=== PATIENT | male | born 1985 | race Hispanic/Latino ===

== ENCOUNTER 2018-09-07 15:20 | Emergency (ER) | payer OTHER ==
[2018-09-07 15:39] LABS: BASOPHILS % (AUTO) 0.5 % (0.0-5.0); EOSINOPHILS % (AUTO) 2.2 % (0.0-8.0); HEMATOCRIT 44.4 % (42-54); MEAN CORPUSCULAR HEMOGLOBIN 30.8 pg (27.0-33.0); MEAN CORPUSCULAR VOLUME 88.1 fL (79-99); MONOCYTES % (AUTO) 8.1 % (3.0-13.0); NEUTROPHILS % (AUTO) 48.2 % (40.0-77.0); NUCLEATED RED BLOOD CELLS 0.1 % (0.0-0.19); PLATELET COUNT (AUTO) 208 K/uL (130-400); RED BLOOD CELL COUNT(AUTO) 5.04 MIL/uL (4.50-6.20); RED CELL DISTRIBUTION WIDTH 12.9 % (11.0-15.5); WHITE BLOOD COUNT (AUTO) 7.3 K/uL (4.8-10.8)
[2018-09-07 15:50] LABS: APPEARANCE,URINE Clear (CLEAR); BILIRUBIN,URINE Negative (NEGATIVE); COLOR,URINE Yellow (YELLOW); GLUCOSE, URINE (UA) Negative (NEGATIVE); KETONES,URINE Negative (NEGATIVE); LEUKOCYTE ESTERASE ,URINE Negative (NEGATIVE); NITRATE,URINE Negative (NEGATIVE); OCCULT BLOOD,URINE Negative (NEGATIVE); PROTEIN,URINE Negative (NEGATIVE); UROBILINOGEN,URINE 0.2 mg/dL (0.2-1.0)
[2018-09-07 15:51] LABS: CREATININE 1.5 mg/dL (0.5-1.5); POTASSIUM 3.7 mmol/L (3.5-5.1)
[2018-09-07 15:56] LABS: ALBUMIN 4.1 g/dL (3.5-5.0); BILIRUBIN,TOTAL 0.5 mg/dL (0.2-1.0); TOTAL PROTEIN, SERUM 7.8 g/dL (6.0-8.3)
[2018-09-07 15:58] LABS: AMPHET/METH SCREEN,URINE NEGATIVE (NEGATIVE); BARBITURATE SCREEN, URINE NEGATIVE (NEGATIVE); BENZODIAZEPINES SCREEN,URINE NEGATIVE (NEGATIVE); CANNABINOID SCREEN,URINE NEGATIVE (NEGATIVE); COCAINE SCREEN,URINE NEGATIVE (NEGATIVE); OPIATE SCREEN,URINE NEGATIVE (NEGATIVE); PHENCYCLIDINE SCREEN,URINE NEGATIVE (NEGATIVE)
[2018-09-07] MEDS ORDERED: ONDANSETRON HCL 4 MG/2 ML VIAL ONE (16:06)
== END 2018-09-07 17:22 | disposition home or self-care (01) ==
LOC: EDH 15:20
DX: T67.5XXA Heat exhaustion, unspecified, initial encounter (principal); X58.XXXA Exposure to other specified factors, initial encounter; Y93.89 Activity, other specified; Y92.89 Other specified places as the place of occurrence of the external cause; Y99.8 Other external cause status
CPT/HCPCS: 36415; 80053; 80305; 81003; 82550; 85025; 96360; 96374; 99284; J2405

== ENCOUNTER 2024-11-29 20:25 | Inpatient (IN) | payer SELFPAY ==
[~2024-11-29] VITALS: Ht 185.4 cm; Wt 135.6 kg
--- NOTE | 2024-11-29 21:00 | ERN ---
ED Note History of Present Illness Stated Complaint: C/O BLOOD IN STOOL X 4 DAYS W/DIZZINESS Chief Complaint: Bloody Stool Time Seen by MD: 20:44 Dictation: 39-year-old male with a past medical history of hypertension presented to the ER complaining of 1 week of blood in stool, reports that it is bright red color associated with dizziness. Stated dialysis sometime he has pain in his lower back associated with those episodes of bright red blood from rectum. Allergies: Coded Allergies: No Known Allergies (Unverified Allergy, Unknown, 11/29/24) Past Medical History Past Medical History: Hypertension Surgical History: None Review of System Dictation NEGATIVE EXCEPT PER HPI Constitutional: Negative for fever,chills, and weight loss Eyes: Negative for injury, pain,redness, and discharge ENT: Negative for injury,pain or swelling Cardiovascular: denies chest pain, palpitations, and edema Respiratory: Negative for shortness of breath, cough, and wheezing, Abdomen/GI: Reports bright red blood from rectum Back: Negative for injury and pain : Negative for injury, bleeding and discharge MS/Extremity: Negative for injury and deformity Skin: Negative for rash, and discoloration Neuro: Negative for headache, weakness, numbness, tingling, and seizure Psych: Negative for suicide ideation, homicidal ideation, and hallucinations Initial Vital Sign VS Vital Signs Date Time Temp Pulse Resp B/P (MAP) Pulse Ox O2 Delivery O2 Flow Rate FiO2 11/29/24 20:29 99.0 84 20 178/108 98 Room Air 11/29/24 21:11 0 21 Physical Exam Dictation General: awake, alert, NAD Head/Face: Normocephalic, atraumatic Eyes: PERRL, EOMI, vision at baseline ENT: oral cavity clear, TMs clear, no signs of infection Neck: Trachea midline, supple, no nuchal rigidity Cardiovascular: RRR, normal S1/S2, No MRGs, no JVD Respiratory: CTAB, no respiratory distress, No rales or wheezes Abdomen: Soft , no tender Skin: Warm, dry, normal turgor, no rash MS/Extremity: Pulses equal, no cyanosis, neurovascular intact, FROM Neuro: COAx4, GCS 15, strength 5/5, CN 2-12 intact, normal cerebellar exam, normal gait, Psych: Normal behavior, mood, and affect normal Results (Laboratory/Radiology) Laboratory/Radiology Laboratory Tests Test 11/29/24 21:05 White Blood Count 9.1 K/uL (4.8-10.8) Red Blood Count 4.74 MIL/uL (4.50-6.20) Hemoglobin 14.4 g/dL (14.0-18.0) Hematocrit 40.0 % (42-54) L Mean Corpuscular Volume 84.4 fL (79-99) Mean Corpuscular Hemoglobin 30.4 pg (27.0-33.0) Mean Corpuscular Hemoglobin Concent 36.0 g/dL (32.0-36.0) Red Cell Distribution Width 12.1 % (11.0-15.5) Platelet Count 210 K/uL (130-400) Mean Platelet Volume 10.4 fL (7.5-10.5) Immature Granulocyte % (Auto) 0.4 % (0-1) Neutrophils (%) (Auto) 51.1 % (40.0-77.0) Lymphocytes (%) (Auto) 37.5 % (21.0-51.0) Monocytes (%) (Auto) 8.1 % (3.0-13.0) Eosinophils (%) (Auto) 2.1 % (0.0-8.0) Basophils (%) (Auto) 0.8 % (0.0-5.0) Neutrophils # (Auto) 4.7 K/uL (1.8-7.7) Lymphocytes # (Auto) 3.4 K/uL (1.0-4.8) Monocytes # (Auto) 0.7 K/uL (0.1-1.0) Eosinophils # (Auto) 0.19 K/uL (0.00-0.70) Basophils # (Auto) 0.07 K/uL (0.00-0.20) Absolute Immature Granulocyte (auto 0.04 K/uL (0-1) Nucleated Red Blood Cells 0.0 % (0.0-0.19) Prothrombin Time 9.9 SEC (9.6-11.6) Prothromb Time International Ratio <= 0.93 (0.85-1.15) Activated Partial Thromboplast Time 25.6 SEC (26.3-35.5) L Stool Occult Blood POSITIVE (NEGATIVE) H Sodium Level 139 mmol/L (136-145) Potassium Level 3.9 mmol/L (3.5-5.1) Chloride Level 105 mmol/L (101-111) Carbon Dioxide Level 27 mmol/L (21-32) Blood Urea Nitrogen 19 mg/dL (7-18) H Creatinine 1.5 mg/dL (0.5-1.3) H Glomerular Filtration Rate Calc 60 mL/min (>90) Random Glucose 94 mg/dL (70-105) Total Calcium 9.1 mg/dL (8.5-10.1) ED Course ED Course Orders Procedure Category Date Status Time Cbc With Differential LAB 11/29/24 Complete 20:51 Occult Blood Stool LAB 11/29/24 Complete Single Only 20:51 Basic Metabolic Panel LAB 11/29/24 Complete 20:51 Pt And Ptt LAB 11/29/24 Complete 21:16 Pantoprazole 40mg Inj PHA 11/29/24 Complete (Protonix 40mg Inj 21:30 0.9%Nacl 1000ml (Ns PHA 11/29/24 In Process 1000ml) 22:00 Current Medications Medications (Trade) Dose Ordered Sig/Mini Route PRN Reason Start Time Stop Time Status Last Admin Dose Admin Pantoprazole Sodium (PROTonix 40MG INJ) 40 mg ONCE ONCE IVP 11/29/24 21:30 11/29/24 21:31 DC 11/29/24 21:25 Sodium Chloride 1,000 ml @ 125 mls/hr Q8H IV 11/29/24 22:00 12/29/24 21:59 Vital Signs Date Time Temp Pulse Resp B/P (MAP) Pulse Ox O2 Delivery O2 Flow Rate FiO2 11/29/24 21:11 99.0 86 18 168/98 98 Room Air* 0 21 11/29/24 20:29 99.0 84 20 178/108 98 Room Air Medical Decision Making MDM 39-year-old male reports by red blood from rectum x1 week associated with the dizziness. Possible concerning hemorrhoids Possible AV malformation. CBC Occult blood test ordered Patient passed to clots of blood here in the ER. Hemoglobin was stable 14.4 Patient will be admitted for further evaluation. Likely he will need a endoscopy versus colonoscopy for further evaluation. DX & DISP Disposition: Observation Decision to Admit Date: Nov 29, 2024 Departure Impression: Primary Impression: Stool bloody Additional Impressions: Internal hemorrhoid, GI bleed Condition: Stable Referrals: SELF,REFERRAL (PCP) Patient accepted by hospitalist. I will admit under observation. BRANDO AVILA MD Nov 29, 2024 21:00
[2024-11-29 21:14] LABS: IMMATURE GRANULOCYTE ABSOLUTE 0.04 K/uL (0-1); NUCLEATED RED BLOOD CELLS 0.0 % (0.0-0.19); PLATELET COUNT (AUTO) 210 K/uL (130-400); RED BLOOD CELL COUNT(AUTO) 4.74 MIL/uL (4.50-6.20); RED CELL DISTRIBUTION WIDTH 12.1 % (11.0-15.5); WHITE BLOOD COUNT (AUTO) 9.1 K/uL (4.8-10.8)
[2024-11-29 21:22] LABS: CREATININE 1.5 mg/dL (0.5-1.3); GLOMERULAR FILTR. RATE CALC 60.0 mL/min (>90); GLUCOSE,RANDOM 94.0 mg/dL (70-105); SODIUM SERUM 139.0 mmol/L (136-145); UREA NITROGEN, BLOOD 19.0 mg/dL (7-18)
[2024-11-29 21:28] LABS: INR <= 0.93 (0.85-1.15)
[2024-11-29] MEDS: 0.9%NACL 1000ML 1,000 ML IV SCH (21:52)
--- NOTE | 2024-11-29 22:06 | NUR ---
PROVIDER CONSULTATION CALL: Provider Called:INA SEPULVEDA PAGED DR HOLGUIN @2149//DR HOLGUIN RESPONDED @2149 Reason for Consultation:CONSULT FOR ADMISSION Who spoke with provider: INA SEPULVEDA Comments:
[2024-11-30] MEDS ORDERED: LOSA50TA64 PO (01:01)
--- NOTE | 2024-11-30 01:20 | NUR ---
REPORT GIVEN TO PAULINE ARAUJO
[2024-11-30 01:30] VITALS: O2SAT 98
[2024-11-30 01:35] VITALS: BP 155/98; PULSE 66; RESP 18; TEMP 98.3
[2024-11-30 05:03] VITALS: BP 144/99; PULSE 60; RESP 19; TEMP 97.8
[2024-11-30 05:49] LABS: NUCLEATED RED BLOOD CELLS 0.0 % (0.0-0.19); PLATELET COUNT (AUTO) 174.0 K/uL (130-400); RED BLOOD CELL COUNT(AUTO) 4.41 MIL/uL (4.50-6.20); RED CELL DISTRIBUTION WIDTH 12.3 % (11.0-15.5); WHITE BLOOD COUNT (AUTO) 6.5 K/uL (4.8-10.8)
[2024-11-30 05:58] LABS: CREATININE 1.4 mg/dL (0.5-1.3); GLOMERULAR FILTR. RATE CALC 65.0 mL/min (>90); GLUCOSE,RANDOM 77.0 mg/dL (70-105); SODIUM SERUM 141.0 mmol/L (136-145); UREA NITROGEN, BLOOD 17.0 mg/dL (7-18)
[2024-11-30 08:00] VITALS: O2SAT 97
[2024-11-30 08:21] VITALS: BP 131/88; PULSE 69; RESP 19; TEMP 97.9
--- NOTE | 2024-11-30 08:56 | NUR ---
DCP: HOME met with pt and his mother Naomy Kahn [phone] who was at bedside. Pt is currently unemployed and staying with his mother in her home. Pt states he remains independent, drives, active. Pt able to care for self, mother provides support. No DME, provider, HH or HD. PCP is Shahbaz Frazier and uses [facility] for rx meds. Pt denies dc needs and will return home. Addendum: 11/30/24 at 0908 by JAGDISH DOWELL Amended: Links added.
[2024-11-30 12:00] VITALS: BP 139/98; PULSE 56; RESP 19; TEMP 98.3
--- NOTE | 2024-11-30 14:05 | NUR ---
DR. MENJIVAR MADE AWARE PATIENT WANTS TO LEAVE AMA.
--- NOTE | 2024-11-30 14:08 | NUR ---
PATIENT SIGNED THE AGAINST MEDICAL ADVICE FORM. NURSE EDUCATED PATIENT THIS RISKS AND CONSEQUENCES OF LEAVING WITH OUT AN ORDER. PATIENT VERBALIZE UNDERSTATING. IV WAS REMOVED INTACT.
--- NOTE | 2024-11-30 20:33 | DS ---
DATE OF DISCHARGE: 11/30/2024 PRESENTING COMPLAINT: Rectal bleeding. HOSPITAL COURSE: A 39-year-old male with morbid obesity, hypertension, chronic alcohol and tobacco use, presented to hospital for 5 days of rectal bleeding. The patient admitted as a case of possible GI bleed. Hemoglobin was trended, which was slight drop and Gastroenterology was consulted. The patient had decided to leave against medical advice prior to being seen by Gastroenterology. Risks including cardiac arrest, GI bleed, stroke, heart failure, and explained to the patient, which he verbalized understanding. FINAL DISCHARGE DIAGNOSES: * GI bleed. * Hypertension. * ____. * Obesity. * Chronic tobacco use. * Chronic alcohol use. PLAN: The patient left against medical advice. TID: [id number] RECEIPT: [id number]
--- NOTE | 2024-12-01 02:02 | HP ---
DATE OF SERVICE: 11/29/2024. PRESENTING COMPLAINT: Hematochezia. HISTORY OF PRESENT ILLNESS: A 39-year-old male with history of morbid obesity, hypertension, chronic alcohol and tobacco use, presented to hospital with 5 days' duration of hematochezia. The patient denies hematemesis. No abdominal pain. Stool contained bright red blood. No history of similar episodes in the past. Hemoglobin in the Emergency Room was 14.4. Stool occult blood was positive. PAST MEDICAL HISTORY: * Hypertension. * Morbid obesity. * Chronic alcohol use. * Chronic tobacco use. PAST SURGICAL HISTORY: Denies. ALLERGIES: No known drug allergies. HOME MEDICATIONS: Reviewed. SOCIAL HISTORY: The patient drinks and smokes. Denies illicit drug use. FAMILY HISTORY: Noncontributory. REVIEW OF SYSTEMS: Greater than 10 systems were reviewed, negative except as documented above. PHYSICAL EXAMINATION: GENERAL: Young male, awake. VITAL SIGNS: Temperature 99.0, pulse 85, respiratory rate 18, BP 170/108. EYES: No icterus. Pupils are equal and reactive. HENT: No oral thrush seen. Moist oral mucosa. NECK: Supple. No JVD or thyromegaly. LUNGS: Good air entry. No rales. No rhonchi. CARDIOVASCULAR SYSTEM: S1 and S2 regular. No murmur heard. ABDOMEN: Obese, soft, nontender. Bowel sound is present. CENTRAL NERVOUS SYSTEM: Awake, alert, and oriented x 3. No focal deficits. SKIN: No rashes. No itchiness. LYMPHATIC: No peripheral lymphadenopathy. BACK: No deformity. No pressure ulcer. MUSCULOSKELETAL: No joint swelling, erythema or tenderness. VASCULAR: No ischemia or gangrene of extremities. LABORATORY DATA: Sodium 139, potassium 3.9, BUN 19, creatinine 1.5. WBC 9.0, hemoglobin 14.4, platelets 210. ASSESSMENT: A 39-year-old male presented with hematochezia, 5-day duration. Current problems include: * Possible GI bleed. * Uncontrolled hypertension. * Acute renal failure. * Morbid obesity. * Chronic tobacco use. * Chronic alcohol use. PLAN: * Admit the patient to medical floor. * Start the patient on Protonix. * Start the patient on thiamine. * The patient will be placed on folic acid. * The patient will be placed on a clear liquid diet. * Home antihypertensive will be resumed. * Gastroenterology evaluation. * The patient will be followed up closely. TID: [id number] RECEIPT: [id number]
== END 2024-11-30 14:30 | disposition home or self-care (01) | DRG 378 ==
LOC: EDH 20:25 → EDHIP 20:26 → 4CH 11-30 01:24
PROVIDERS: ADMIT Internal Medicine Infectious Disease; ATTEND Internal Medicine Infectious Disease
DX: K92.2 Gastrointestinal hemorrhage, unspecified (principal); N17.9 Acute kidney failure, unspecified; E66.01 Morbid (severe) obesity due to excess calories; I10 Essential (primary) hypertension; Z72.0 Tobacco use; Z68.39 Body mass index [BMI] 39.0-39.9, adult; Z79.899 Other long term (current) drug therapy
CPT/HCPCS: 36415; 80048; 82270; 83735; 85025; 85027; 85610; 85730; 96374; 96375; 99285; G0378; J2470; J7030